=== PATIENT | male | born 1990 | race Caucasian/White ===

== ENCOUNTER 2016-03-29 13:12 | Emergency (ER) | payer MEDICAID, OTHER ==
[~2016-03-29] VITALS: Ht 167.6 cm; Wt 59.0 kg
[2016-03-29 13:20] VITALS: BP 107/62
[2016-03-29 14:17] LABS: Albumin 3.9 g/dL (3.4-5.0); Anion Gap 11 (5-15); Blood Urea Nitrogen 10 mg/dL (7-18); Calcium 9.4 mg/dL (8.5-10.1); Carbon Dioxide 24 mmol/L (21-32); Chloride 104 mmol/L (98-107); Glucose 97 mg/dL (74-106); Potassium 3.5 mmol/L (3.5-5.1); Sodium 139 mmol/L (136-145)
[2016-03-29 14:19] LABS: Aspartate Aminotransferase 37 U/L (15-37); BUN/Creatinine Ratio 10.6; GFR African American 125 mL/min; GFR Non-African American 103 mL/min; Salicylate 9.7 mg/dL (2.8-20.0)
[2016-03-29 14:23] LABS: Acetaminophen < 2.0 ug/mL (10-30); Alkaline Phosphatase 108 U/L (45-117); Bilirubin, Total 0.4 mg/dL (0.2-1.0); Total Protein 7.4 g/dL (6.4-8.2)
[2016-03-29 14:38] LABS: Basophils # (auto) 0.1 uL; Basophils % (auto) 0.8 % (0.0-2.0); Eosinophils # (auto) 0 uL; Eosinophils % (auto) 0.2 % (0.0-7.0); Hematocrit 43.8 % (41.0-53.0); Hemoglobin 13.9 g/dL (13.5-17.5); Lymphocytes # (auto) 1.2 uL; Lymphocytes % (auto) 11.9 % (10.0-50.0); Mean Corpuscular Hemoglobin 29.4 pg (28.0-32.0); Mean Corpuscular Hgb Conc. 31.7 g/dL (32.0-36.0); Mean Corpuscular Volume 92.5 fL (80.0-100.0); Mean Platelet Volume 8.3 fL (7.4-10.4); Monocytes # (auto) 0.3 uL; Monocytes % (auto) 2.6 % (0.0-12.0); Neutrophils # (auto) 8.4 uL; Neutrophils % (auto) 84.5 % (37.0-80.0); Platelet Count (auto) 360 10^3/uL (140-450); Red Cell Distribution Width 12.8 % (11.6-16.0); White Blood Cell 9.9 10^3/uL (4.4-10.8)
== END 2016-03-29 20:50 | disposition left against medical advice (07) ==
LOC: ER 13:16
DX: R10.9 Unspecified abdominal pain (principal); Z53.21 Procedure and treatment not carried out due to patient leaving prior to being seen by health care provider
CPT/HCPCS: 36415; 80053; 80329; 85025

== ENCOUNTER 2018-04-29 06:44 | Emergency (ER) | payer MEDICAID ==
[~2018-04-29] VITALS: Ht 167.6 cm; Wt 63.5 kg
[2018-04-29 07:26] VITALS: BP 140/82
[2018-04-29] MEDS ORDERED: BACLOFEN 10 MG TAB PO ONE (08:45)
[2018-04-29] MEDS ORDERED: HYDROcodone-ACET 10/325MG TAB PO ONE (08:45)
== END 2018-04-29 09:11 | disposition home or self-care (01) ==
LOC: ER 06:44 → EDBD 06:44 → ER 09:11
DX: S02.2XXA Fracture of nasal bones, initial encounter for closed fracture (principal); R04.0 Epistaxis; M62.838 Other muscle spasm; M54.2 Cervicalgia; M54.5 Low back pain; M25.511 Pain in right shoulder; V49.59XA Passenger injured in collision with other motor vehicles in traffic accident, initial encounter; Y93.89 Activity, other specified; Y99.8 Other external cause status; Y92.488 Other paved roadways as the place of occurrence of the external cause
CPT/HCPCS: 70450; 70486; 72125; 72131; 73030